=== PATIENT | female | born 1955 | race Caucasian/White ===

== ENCOUNTER 2016-06-16 12:54 | Emergency (ER) | payer OTHER ==
[~2016-06-16 12:54] MED LIST: ALBU1.25 NEB; BACT800T5 PO; METO50TA PO; OXYC1SOL5 PO
[2016-06-16 13:06] VITALS: BP 123/78; PULSE 73; RESP 18; TEMP 98.2; O2SAT 97
[2016-06-16] MEDS ORDERED: SODIUM CHLOR 0.9% 1000 ML INJ 1,000 ML IV ONE (13:10)
[2016-06-16] MEDS ORDERED: SODIUM CHLORIDE 0.9% FLUSH 10 ML FLUSH IVF PRN (13:15)
[2016-06-16] MEDS ORDERED: HYDR-3533 PO (13:22)
[2016-06-16] MEDS ORDERED: METO50TA PO (13:22)
[2016-06-16 13:54] LABS: AUTOMATED NEUTROPHIL # 7.5 TH/MM3 (1.8-7.7); BASOPHIL % 0.2 % (0.0-2.0); EOSINOPHIL # 0.2 TH/MM3 (0-0.4); EOSINOPHIL % 1.8 % (0.0-4.0); HEMATOCRIT 34.8 % (35.0-46.0); HEMO FLAGS DIFF FINAL; LYMPH % 24.6 % (9.0-44.0); LYMPHOCYTE # 2.9 TH/MM3 (1.0-4.8); MEAN CELL VOLUME 92.9 FL (80.0-100.0); MEAN CORPUSCULAR HEMOGLOBIN 31.3 PG (27.0-34.0); MEAN CORPUSCULAR HGB CONC 33.7 % (32.0-36.0); NEUT % 63.4 % (16.0-70.0); PLATELET COUNT 324 TH/MM3 (150-450); RED BLOOD COUNT 3.74 MIL/MM3 (4.00-5.30); RED CELL DISTRIBUTION WIDTH 13.6 % (11.6-17.2); WHITE BLOOD COUNT 11.8 TH/MM3 (4.0-11.0)
[2016-06-16 14:10] LABS: ALKALINE PHOSPHATASE 116 U/L (45-117); TOTAL BILIRUBIN ADULT 0.2 MG/DL (0.2-1.0)
[2016-06-16 14:13] LABS: ALT (GPT) 32 U/L (10-53); ANION GAP 5 MEQ/L (5-15); AST (GOT) 49 U/L (15-37); BLOOD UREA NITROGEN 30 MG/DL (7-18); CHLORIDE 107 MEQ/L (98-107); GLOMERULAR FILTRATION RATE 47 ML/MIN (>89); SODIUM (NA) 138 MEQ/L (136-145)
[2016-06-16 14:14] LABS: POTASSIUM 4.7 MEQ/L (3.5-5.1)
--- NOTE | 2016-06-16 15:15 | EKG ---
Date Performed: 06/16/2016 Time Performed: 13:40:11 PTAGE: 60 years EKG: SINUS BRADYCARDIA BORDERLINE ECG COMPARED TO PRIOR ELECTROCARDIOGRAM, Rate has slowed. PREVIOUS TRACING : 10/30/2014 22.22 DOCTOR: Hipolito Varela Interpretating Date/Time 06/16/2016 15:13:32
--- NOTE | 2016-06-16 16:02 | PD ---
HPI Chief Complaint: OD/ Ingestion Time Seen by Provider: 13:07 Travel History International Travel<30 days: No Contact w/Intl Traveler<30days: No Traveled to known affect area: No History of Present Illness HPI 60-year-old female presents with report of taking 4 of her Narco pills. She received 0.4 mg of Narcan with a GCS of 3 and is now GCS of 15 here. She states she was taking it for a pancreatitis attack. She denies other complaints other than upper abdominal pain. She states she has the pills that she can take for the pain. She will not tell me further details about that on initial examination. keeps stating that she took it for the pain. PFSH Past Medical History Asthma: No Blood Disorders: No Anxiety: No Depression: No Heart Rhythm Problems: No Cancer: No Cardiac Catheterization: No Cardiovascular Problems: Yes (HTN ) High Cholesterol: No Chemotherapy: No Chest Pain: No Congestive Heart Failure: No COPD: Yes Diabetes: No Diminished Hearing: No Endocrine: No Gastrointestinal Disorders: Yes (HX PANCREATITIS) Genitourinary: No Hypertension: Yes Immune Disorder: No Implanted Vascular Access Dvce: Yes Musculoskeletal: Yes Neurologic: No Psychiatric: No Reproductive: No Respiratory: Yes (COPD ) Immunizations Current: No Myocardial Infarction: No Pancreatitis: Yes Radiation Therapy: No Sleep Apnea: No Thyroid Disease: No Menopausal: Yes Past Surgical History Appendectomy: Yes Body Medical Devices: RTK, AND PLATE IN LEFT HAND Cholecystectomy: Yes Coronary Artery Bypass Graft: No Hysterectomy: Yes Social History Alcohol Use: No (QUIT) Tobacco Use: Yes (PACK AND A HALF) Substance Use: No Allergies-Medications (Allergen,Severity, Reaction): Coded Allergies: Aspirin (Verified Allergy, Severe, Anaphylaxis, 10/30/14) Morphine (Verified Allergy, Severe, 10/30/14) Penicillin (Verified Allergy, Severe, Hives, 10/30/14) Uncoded Allergies: NSAIDS (Allergy, Severe, SOB-SWELLING, 06/03/12) Reported Meds & Prescriptions Reported Meds & Active Scripts Active Reported Lortab (Hydrocodone-Acetaminophen) 5-325 Mg Tab 1 Tab PO Q4H PRN Metoprolol Tartrate 50 Mg Tab 50 Mg PO BID Review of Systems Except as stated in HPI: all other systems reviewed are Neg Physical Exam Narrative GENERAL: Well-nourished, well-developed patient. SKIN: Warm and dry. HEAD: Normocephalic and atraumatic. EYES: No injection or drainage. ENT: No nasal drainage noted. NECK: Supple, trachea midline. CARDIOVASCULAR: Regular rate and rhythm RESPIRATORY: No increased effort. No accessory muscle use. GASTROINTESTINAL: Abdomen soft, mild epigastric tenderness, nondistended. NEUROLOGICAL: Awake and alert. Motor and sensory grossly within normal limits. Normal speech. Data Data Last Documented VS Vital Signs Date Time Temp Pulse Resp B/P Pulse Ox O2 Delivery O2 Flow Rate FiO2 06/16/16 18:19 70 16 130/80 97 Room Air 06/16/16 13:06 98.2 Orders Electrocardiogram (06/16/16 13:10) Complete Blood Count With Diff (06/16/16 13:10) Comprehensive Metabolic Panel (06/16/16 13:10) Prothrombin Time / Inr (Pt) (06/16/16 13:10) Act Partial Throm Time (Ptt) (06/16/16 13:10) Blood Glucose (06/16/16 13:10) Iv Access Insert/Monitor (06/16/16 13:10) Ecg Monitoring (06/16/16 13:10) Oximetry (06/16/16 13:10) Sodium Chloride 0.9% Flush (Ns Flush) (06/16/16 13:15) Sodium Chlor 0.9% 1000 Ml Inj (Ns 1000 M (06/16/16 13:10) Drug Screen, Random Urine (06/16/16 13:10) Alcohol (Ethanol) (06/16/16 13:10) Salicylates (Aspirin) (06/16/16 13:10) Tylenol (Acetaminophen) (06/16/16 13:10) Lipase (06/16/16 13:10) Tylenol (Acetaminophen) (06/16/16 15:00) Psych Screen (06/16/16 15:58) Urinalysis - C+S If Indicated (06/16/16 17:07) Cath For Specimen (06/16/16 18:02) Acetaminophen (Tylenol) (06/16/16 18:30) Labs Laboratory Tests Test 06/16/16 06/16/16 06/16/16 13:36 15:58 18:16 White Blood Count 11.8 TH/MM3 Red Blood Count 3.74 MIL/MM3 Hemoglobin 11.7 GM/DL Hematocrit 34.8 % Mean Corpuscular Volume 92.9 FL Mean Corpuscular Hemoglobin 31.3 PG Mean Corpuscular Hemoglobin 33.7 % Concent Red Cell Distribution Width 13.6 % Platelet Count 324 TH/MM3 Mean Platelet Volume 7.6 FL Neutrophils (%) (Auto) 63.4 % Lymphocytes (%) (Auto) 24.6 % Monocytes (%) (Auto) 10.0 % Eosinophils (%) (Auto) 1.8 % Basophils (%) (Auto) 0.2 % Neutrophils # (Auto) 7.5 TH/MM3 Lymphocytes # (Auto) 2.9 TH/MM3 Monocytes # (Auto) 1.2 TH/MM3 Eosinophils # (Auto) 0.2 TH/MM3 Basophils # (Auto) 0.0 TH/MM3 CBC Comment DIFF FINAL Differential Comment Sodium Level 138 MEQ/L Potassium Level 4.7 MEQ/L Chloride Level 107 MEQ/L Carbon Dioxide Level 26.0 MEQ/L Anion Gap 5 MEQ/L Blood Urea Nitrogen 30 MG/DL Creatinine 1.18 MG/DL Estimat Glomerular Filtration 47 ML/MIN Rate Random Glucose 102 MG/DL Calcium Level 8.8 MG/DL Total Bilirubin 0.2 MG/DL Aspartate Amino Transf 49 U/L (AST/SGOT) Alanine Aminotransferase 32 U/L (ALT/SGPT) Alkaline Phosphatase 116 U/L Total Protein 6.7 GM/DL Albumin 3.5 GM/DL Lipase 54 U/L Salicylates Level 4.0 MG/DL Acetaminophen Level 4.0 MCG/ML 3.4 MCG/ML Ethyl Alcohol Level LESS THAN 3 MG/DL Prothrombin Time 10.8 SEC Prothromb Time International 1.0 RATIO Ratio Activated Partial 27.4 SEC Thromboplast Time Urine Color LIGHT-YELLOW Urine Turbidity CLEAR Urine pH 5.0 Urine Specific [place] 1.010 Urine Protein NEG mg/dL Urine Glucose (UA) NEG mg/dL Urine Ketones NEG mg/dL Urine Occult Blood NEG Urine Nitrite NEG Urine Bilirubin NEG Urine Urobilinogen LESS THAN 2.0 MG/DL Urine Leukocyte Esterase NEG Microscopic Urinalysis Comment CULT NOT INDICATED Urine Opiates Screen POS Urine Barbiturates Screen NEG Urine Amphetamines Screen NEG Urine Benzodiazepines Screen NEG Urine Cocaine Screen NEG Urine Cannabinoids Screen NEG MDM Medical Decision Making Medical Screen Exam Complete: Yes Emergency Medical Condition: Yes Medical Record Reviewed: Yes (past history confirmed) Interpretation(s) CBC & BMP Diagram 5/11/17 13:36 ua no uti Differential Diagnosis Overdose, coingestion, pancreatitis Narrative Course Will check blood work and reevaluate Labs are within normal limits, will repeat Tylenol level and if still normal she will be cleared, Mental health screening discussed with the patient. Psychiatric screen ordered. repeat tylenol is normal, medically cleared Diagnosis Primary Impression: Drug overdose Qualified Code: T50.904A - Drug overdose, undetermined intent, initial encounter Barb Mcwilliams MD June 16, 2016 16:02
[2016-06-16 16:31] LABS: APTT (PATIENT) 27.4 SEC (24.3-30.1); PROTHROMBIN TIME - PATIENT 10.8 SEC (9.8-11.6)
[2016-06-16 18:19] VITALS: BP 130/80; PULSE 70; RESP 16; O2SAT 97
[2016-06-16] MEDS ORDERED: ACETAMINOPHEN 325 MG TAB PO ONE (18:30)
[2016-06-16 18:38] LABS: BLOOD, URINE NEG (NEG); COMMENT (UR) CULT NOT INDICATED; CULTURE IF INDICATED CULT NOT INDICATED; GLUCOSE,URINE NEG (NEG); KETONE, URINE NEG (NEG); NITRITE,URINE NEG (NEG); URINE COLOR LIGHT-YELLOW (YELLW/STRAW)
[2016-06-16 18:39] LABS: AMPHETAMINE, URINE NEG (NEG); BARBITURATES, URINE NEG (NEG); COCAINE, URINE NEG (NEG)
[2016-06-16 19:27] VITALS: O2SAT 91
[2016-06-16 19:40] VITALS: O2SAT 98
[2016-06-16 21:56] VITALS: BP 117/56; PULSE 56; RESP 14; O2SAT 97
[2016-06-17 01:59] VITALS: BP 121/69; PULSE 62; RESP 16; O2SAT 96
[2016-06-17 05:00] VITALS: BP 112/62; PULSE 66; RESP 16; O2SAT 97
[2016-06-17 07:30] VITALS: RESP 17; O2SAT 99
[2016-06-17 07:41] VITALS: BP 137/57; PULSE 82; RESP 16; TEMP 97.8; O2SAT 99
== END 2016-06-17 08:10 | disposition left against medical advice (07) ==
LOC: NEPE 12:54 → NEPD 06-17 08:10
DX: T40.2X4A Poisoning by other opioids, undetermined, initial encounter (principal); I10 Essential (primary) hypertension; J44.9 Chronic obstructive pulmonary disease, unspecified; F17.210 Nicotine dependence, cigarettes, uncomplicated; Y92.9 Unspecified place or not applicable
CPT/HCPCS: 80053; 80307; 81001; 83690; 85025; 85610; 85730; 93005; 96360; 96361; 99284; J7030; P9612

== ENCOUNTER 2016-12-06 17:17 | Emergency (ER) | payer OTHER ==
[~2016-12-06] VITALS: Ht 172.7 cm; Wt 50.0 kg
[~2016-12-06 17:17] MED LIST changes: -ALBU1.25 NEB; -BACT800T5 PO; +HYDR-3533 PO; -OXYC1SOL5 PO
[2016-12-06 17:27] VITALS: BP 117/62; PULSE 52; RESP 18; TEMP 97.6; O2SAT 97
[2016-12-06] MEDS ORDERED: SODIUM CHLOR 0.9% 1000 ML INJ 1,000 ML IV SCH (17:47)
--- NOTE | 2016-12-06 17:47 | PD ---
HPI Chief Complaint: Altered Mental Status Time Seen by Provider: 17:42 Travel History International Travel<30 days: No Contact w/Intl Traveler<30days: No Traveled to known affect area: No History of Present Illness HPI 7-year-old female brought in with history of altered mental status since 9 AM this morning. Patient was brought in by EMS. Patient was last noted to be normal at 9 AM this morning. Patient states she has a terrible headache which started process the 5 days ago. Patient states she has not been taking her normal Lortab, as she did not want to be on it. She's been taking an herbal supplement to aid with withdrawal from narcotics. Patient denies fever, chills, or other symptoms. Her headache is 9 out of 10. She has no obvious weakness or complaints of numbness or tingling. Patient will answer questions appropriately although somewhat lethargic. Not given medications in the ambulance. No IV was started. Patient is allergic to NSAIDs, aspirin, morphine, and penicillin. PFSH Past Medical History Asthma: No Blood Disorders: No Anxiety: No Depression: No Heart Rhythm Problems: No Cancer: No Cardiac Catheterization: No Cardiovascular Problems: Yes High Cholesterol: No Chemotherapy: No Chest Pain: No Congestive Heart Failure: No COPD: Yes Diabetes: No Diminished Hearing: No Endocrine: No Gastrointestinal Disorders: Yes (HX PANCREATITIS) Genitourinary: No Hypertension: Yes Immune Disorder: No Implanted Vascular Access Dvce: Yes Musculoskeletal: Yes Neurologic: No Psychiatric: No Reproductive: No Respiratory: Yes (COPD ) Immunizations Current: No Myocardial Infarction: No Pancreatitis: Yes Radiation Therapy: No Sleep Apnea: No Thyroid Disease: No Menopausal: Yes Past Surgical History Appendectomy: Yes Body Medical Devices: RTK, AND PLATE IN LEFT HAND Cholecystectomy: Yes Coronary Artery Bypass Graft: No Hysterectomy: Yes Social History Alcohol Use: No (QUIT) Tobacco Use: Yes (PACK AND A HALF) Substance Use: No Allergies-Medications (Allergen,Severity, Reaction): Coded Allergies: aspirin (Unverified Allergy, Severe, Anaphylaxis, 12/06/16) morphine (Unverified Allergy, Severe, 12/06/16) penicillin G (Unverified Allergy, Severe, Hives, 12/06/16) Uncoded Allergies: NSAIDS (Allergy, Severe, SOB-SWELLING, 06/03/12) Reported Meds & Prescriptions Reported Meds & Active Scripts Active Reported Lortab (Hydrocodone-Acetaminophen) 10-325 Mg Tab 1 Tab PO TID Clonazepam 0.5 Mg Tab 0.5 Mg PO DAILY Amlodipine (Amlodipine Besylate) 5 Mg Tab 5 Mg PO DAILY Proair Hfa 8.5 GM Inh (Albuterol Sulfate) 90 Mcg/Act Aer 1 Puff INH Q4-6H PRN Prozac (Fluoxetine HCl) 40 Mg Cap 40 Mg PO DAILY Metoprolol Tartrate 50 Mg Tab 50 Mg PO BID Review of Systems Except as stated in HPI: all other systems reviewed are Neg General / Constitutional: No: Fever Eyes: No: Diploplia, Blurred Vision, Photophobia, Drainage, Redness, Foreign Body Sensation, Pain, Tearing, Blind Spots, Visual changes, Blindness HENT: Positive: Headaches, No: Vertigo, Lightheadedness, Sore Throat, Rhinitis , Rhinorrhea, Congestion, Nosebleed, Neck Stiffness, Neck Pain, Dental Difficulties, Ear Discharge Cardiovascular: No: Chest Pain or Discomfort Respiratory: No: Cough, Shortness of Breath, Wheezing Gastrointestinal: No: Nausea, Vomiting, Diarrhea, Abdominal Pain Genitourinary: No: Dysuria Musculoskeletal: No: Pain Skin: No Rash Neurologic: Positive: Weakness, Headache, Change in Mentation, No: Dizziness, Syncope, Focal Abnormalities, Coordination Problem, Tremor, Ataxia, Slurred Speech, Paresthesia, Incontinence, Seizures, Sensory Disturbance Psychiatric: No: Depression Endocrine: No: Polydipsia Hematologic/Lymphatic: No: Easy Bruising Physical Exam Narrative GENERAL: Patient appears somewhat obtunded, but will answer questions and obey commands. SKIN: Warm and dry. Normal color. Normal turgor. Patient has a couple of old ecchymosis areas, but no acute signs of trauma. HEAD: Atraumatic. Normocephalic. Nontender with palpation. EYES: Pupils equal and round. No scleral icterus. No injection or drainage. ENT: No nasal bleeding or discharge. Mucous membranes pink and moist. Pharynx is clear. Airway is patent. NECK: Trachea midline. Supple and nontender. No bony tenderness or step-off. CARDIOVASCULAR: Regular rate and rhythm. RESPIRATORY: No accessory muscle use. Clear to auscultation. Breath sounds equal bilaterally. GASTROINTESTINAL: Abdomen soft, non-tender, nondistended. Hepatic and splenic margins not palpable. MUSCULOSKELETAL: Extremities without clubbing, cyanosis, or edema. No obvious deformities. NEUROLOGICAL: Awake and alert. No obvious cranial nerve deficits. Motor grossly within normal limits. Five out of 5 muscle strength in the arms and legs. Patient is able to wiggle her toes and fingers, as well as touch her nose with both fingers. Normal speech. PSYCHIATRIC: Lethargic, but Appropriate mood and affect; insight and judgment normal. Data Data Last Documented VS Vital Signs Date Time Temp Pulse Resp B/P (MAP) Pulse Ox O2 Delivery O2 Flow Rate FiO2 12/06/16 18:15 Room Air 12/06/16 17:32 46 20 97 12/06/16 17:27 97.6 117/62 (80) Orders Orders Electrocardiogram (12/06/16 17:47) Ammonia (12/06/16 17:47) Complete Blood Count With Diff (12/06/16 17:47) Comprehensive Metabolic Panel (12/06/16 17:47) Creatine Kinase (Cpk) (12/06/16 17:47) Prothrombin Time / Inr (Pt) (12/06/16 17:47) Act Partial Throm Time (Ptt) (12/06/16 17:47) Troponin I (12/06/16 17:47) Urinalysis - C+S If Indicated (12/06/16 17:47) Ct Brain W/O Iv Contrast(Rout) (12/06/16 17:47) Blood Glucose (12/06/16 17:47) Ecg Monitoring (12/06/16 17:47) Iv Access Insert/Monitor (12/06/16 17:47) Cath For Specimen (12/06/16 17:47) Oximetry (12/06/16 17:47) Naloxone Inj (Narcan Inj) (12/06/16 18:00) Sodium Chloride 0.9% Flush (Ns Flush) (12/06/16 18:00) Sodium Chlor 0.9% 1000 Ml Inj (Ns 1000 M (12/06/16 17:47) Drug Screen, Random Urine (12/06/16 17:47) Vascular Access Team Consult/P PRN (12/06/16 18:02) Vascular Poc Ultrasound (12/06/16 ) Alcohol (Ethanol) (12/06/16 18:05) Labs Laboratory Tests Test 12/06/16 18:25 White Blood Count 9.4 TH/MM3 Red Blood Count 3.55 MIL/MM3 Hemoglobin 11.7 GM/DL Hematocrit 34.2 % Mean Corpuscular Volume 96.5 FL Mean Corpuscular Hemoglobin 32.9 PG Mean Corpuscular Hemoglobin Concent 34.1 % Red Cell Distribution Width 13.3 % Platelet Count 292 TH/MM3 Mean Platelet Volume 7.6 FL Neutrophils (%) (Auto) 44.0 % Lymphocytes (%) (Auto) 43.0 % Monocytes (%) (Auto) 10.7 % Eosinophils (%) (Auto) 1.8 % Basophils (%) (Auto) 0.5 % Neutrophils # (Auto) 4.2 TH/MM3 Lymphocytes # (Auto) 4.1 TH/MM3 Monocytes # (Auto) 1.0 TH/MM3 Eosinophils # (Auto) 0.2 TH/MM3 Basophils # (Auto) 0.0 TH/MM3 CBC Comment DIFF FINAL Differential Comment MDM Medical Decision Making Medical Screen Exam Complete: Yes Emergency Medical Condition: Yes Medical Record Reviewed: Yes Differential Diagnosis Altered mental status. Intracranial bleed. Medication overdose. Sepsis. Narrative Course Patient appears medically stable at time of exam. CT the head is ordered. Labs ordered including CBC, CMP, coagulation studies, ammonia level, urine tox screen, urinalysis, and serum alcohol level. IV access is obtained. Patient is given 2 mg of naloxone IV. Patient is given 1000 mL was normal saline bolus. CT of the head was negative. Patient improved and became more lucid and awake after given IV Naloxone. Patient is requesting to leave. Patient denies taking any narcotics or any other medications at this time. Patient denies suicidality has no signs of respiratory depression or compromise. Patient was discussed with Dr. Desir who agrees that the patient does not qualify for [place] act or Garcia act. AMA paperwork was prepared and signed by the patient. Diagnosis Primary Impression: Left against medical advice Disposition: AGAINST MEDICAL ADVICE Condition: Stable Zeferino Crews Dec 06, 2016 17:47
[2016-12-06] MEDS ORDERED: SODIUM CHLORIDE 0.9% FLUSH 5 ML FLUSH IV FLUSH PRN (18:00)
[2016-12-06] MEDS ORDERED: NALOXONE HCL 2 MG/2 ML VIAL IV PUSH ONE (18:00)
[2016-12-06] MEDS ORDERED: HYDR-3535 PO (18:04)
[2016-12-06] MEDS ORDERED: PROZ40CA PO (18:04)
[2016-12-06] MEDS ORDERED: ALBUAER3 INH (18:04)
[2016-12-06] MEDS ORDERED: CLON0.5T PO (18:04)
[2016-12-06] MEDS ORDERED: AMLO5TAB2 PO (18:04)
--- NOTE | 2016-12-06 18:23 | RADRPT ---
EXAM DATE/TIME: 12/06/2016 18:03 [facility] COMPARISON: CT BRAIN W/O CONTRAST, October 30, 2014, 22:42. INDICATIONS : Confusion RADIATION DOSE: 56.35 CTDIvol (mGy) MEDICAL HISTORY : Hypertension. Chronic obstructive pulmonary disease. Pancreatitis. SURGICAL HISTORY : Appendectomy. Cholecystectomy.Hysterectomy. ENCOUNTER: Initial ACUITY: 1 day PAIN SCALE: 0/10 LOCATION: cranial TECHNIQUE: Multiple contiguous axial images were obtained of the head. Using automated exposure control and adj ustment of the mA and/or kV according to patient size, radiation dose was kept as low as reasonably a chievable to obtain optimal diagnostic quality images. DICOM format image data is available electro nically for review and comparison. FINDINGS: The patient is tilted in the scanning gantry CEREBRUM: The ventricles are normal for age. No evidence of midline shift, mass lesion, hemorrhage or acute in farction. No extra-axial fluid collections are seen. POSTERIOR FOSSA: The cerebellum and brainstem are intact. The 4th ventricle is midline. The cerebellopontine angle i s unremarkable. EXTRACRANIAL: The visualized portion of the orbits is intact. SKULL: The calvaria is intact. No evidence of skull fracture. CONCLUSION: Negative noncontrast CT Roland Smith MD on December 06, 2016 at 18:20 Board Certified Radiologist. This report was verified electronically.
[2016-12-06 18:43] LABS: AUTOMATED NEUTROPHIL # 4.2 TH/MM3 (1.8-7.7); BASOPHIL % 0.5 % (0.0-2.0); EOSINOPHIL # 0.2 TH/MM3 (0-0.4); EOSINOPHIL % 1.8 % (0.0-4.0); HEMATOCRIT 34.2 % (35.0-46.0); HEMO FLAGS DIFF FINAL; LYMPHOCYTE # 4.1 TH/MM3 (1.0-4.8); MEAN CELL VOLUME 96.5 FL (80.0-100.0); MEAN CORPUSCULAR HEMOGLOBIN 32.9 PG (27.0-34.0); MEAN CORPUSCULAR HGB CONC 34.1 % (32.0-36.0); MONO % 10.7 % (0.0-8.0); PLATELET COUNT 292 TH/MM3 (150-450); RED BLOOD COUNT 3.55 MIL/MM3 (4.00-5.30); RED CELL DISTRIBUTION WIDTH 13.3 % (11.6-17.2); WHITE BLOOD COUNT 9.4 TH/MM3 (4.0-11.0)
--- NOTE | 2016-12-06 18:47 | PD ---
Data Data Last Documented VS Vital Signs Date Time Temp Pulse Resp B/P (MAP) Pulse Ox O2 Delivery O2 Flow Rate FiO2 12/06/16 18:15 Room Air 12/06/16 17:32 46 20 97 12/06/16 17:27 97.6 117/62 (80) Orders Orders Electrocardiogram (12/06/16 17:47) Ammonia (12/06/16 17:47) Complete Blood Count With Diff (12/06/16 17:47) Comprehensive Metabolic Panel (12/06/16 17:47) Creatine Kinase (Cpk) (12/06/16 17:47) Prothrombin Time / Inr (Pt) (12/06/16 17:47) Act Partial Throm Time (Ptt) (12/06/16 17:47) Troponin I (12/06/16 17:47) Urinalysis - C+S If Indicated (12/06/16 17:47) Ct Brain W/O Iv Contrast(Rout) (12/06/16 17:47) Blood Glucose (12/06/16 17:47) Ecg Monitoring (12/06/16 17:47) Iv Access Insert/Monitor (12/06/16 17:47) Cath For Specimen (12/06/16 17:47) Oximetry (12/06/16 17:47) Naloxone Inj (Narcan Inj) (12/06/16 18:00) Sodium Chloride 0.9% Flush (Ns Flush) (12/06/16 18:00) Sodium Chlor 0.9% 1000 Ml Inj (Ns 1000 M (12/06/16 17:47) Drug Screen, Random Urine (12/06/16 17:47) Vascular Access Team Consult/P PRN (12/06/16 18:02) Vascular Poc Ultrasound (12/06/16 ) Alcohol (Ethanol) (12/06/16 18:05) Labs Laboratory Tests Test 12/06/16 18:25 White Blood Count 9.4 TH/MM3 Red Blood Count 3.55 MIL/MM3 Hemoglobin 11.7 GM/DL Hematocrit 34.2 % Mean Corpuscular Volume 96.5 FL Mean Corpuscular Hemoglobin 32.9 PG Mean Corpuscular Hemoglobin Concent 34.1 % Red Cell Distribution Width 13.3 % Platelet Count 292 TH/MM3 Mean Platelet Volume 7.6 FL Neutrophils (%) (Auto) 44.0 % Lymphocytes (%) (Auto) 43.0 % Monocytes (%) (Auto) 10.7 % Eosinophils (%) (Auto) 1.8 % Basophils (%) (Auto) 0.5 % Neutrophils # (Auto) 4.2 TH/MM3 Lymphocytes # (Auto) 4.1 TH/MM3 Monocytes # (Auto) 1.0 TH/MM3 Eosinophils # (Auto) 0.2 TH/MM3 Basophils # (Auto) 0.0 TH/MM3 CBC Comment DIFF FINAL Differential Comment MDM Supervised Visit with TOMÁS: Yes Narrative Course The history, exam, and medical decision-making in the associated mid-level provider note were completed with my assistance. I reviewed and agree with the findings presented. I attest that I had a [id number] encounter with the patient on the same day, and personally performed and documented my assessment and findings in the medical record. *My assessment and Findings: 61 year-old woman, coming in by EMS with her after she was found sluggishly responsive. She has prescriptions for pain medicines. She was given small dose of naloxone. She woke up denied taking anything but insisted on leaving. She had no respiratory depression or evidence of life-threatening overdose. Denies any suicidality. She'll be allowed to leave AMA with her . Disposition: 07 AGAINST MEDICAL ADVICE Condition: Bret Escobar MD Dec 06, 2016 18:47
[2016-12-06 19:03] LABS: APTT (PATIENT) 27.7 SEC (24.3-30.1); PROTHROMBIN TIME - PATIENT 11.1 SEC (9.8-11.6)
[2016-12-06 19:05] LABS: ALT (GPT) 29 U/L (10-53); ANION GAP 4 MEQ/L (5-15); AST (GOT) 30 U/L (15-37); BICARBONATE 22.2 MEQ/L (21.0-32.0); BLOOD UREA NITROGEN 28 MG/DL (7-18); CHLORIDE 113 MEQ/L (98-107); GLOMERULAR FILTRATION RATE 49 ML/MIN (>89); SODIUM (NA) 139 MEQ/L (136-145)
[2016-12-06 19:09] LABS: ALKALINE PHOSPHATASE 113 U/L (45-117); TOTAL BILIRUBIN ADULT 0.3 MG/DL (0.2-1.0)
[2016-12-06 19:21] LABS: CREATINE KINASE 93 U/L (26-192)
--- NOTE | 2016-12-07 15:46 | EKG ---
Date Performed: 12/06/2016 Time Performed: 17:34:43 PTAGE: 61 years EKG: SINUS BRADYCARDIA POSSIBLE LEFT ATRIAL ENLARGEMENT BORDERLINE ECG Compared to prior tracing no significant change DOCTOR: Rebeca Garcia Interpretating Date/Time 12/07/2016 15:44:24
== END 2016-12-06 19:04 | disposition left against medical advice (07) ==
LOC: NEPC 17:17
DX: R41.82 Altered mental status, unspecified (principal); R51 Headache; I10 Essential (primary) hypertension; J44.9 Chronic obstructive pulmonary disease, unspecified; F17.200 Nicotine dependence, unspecified, uncomplicated; R00.1 Bradycardia, unspecified; Z79.899 Other long term (current) drug therapy
CPT/HCPCS: 70450; 80053; 80307; 82140; 82550; 84484; 85025; 85610; 85730; 93005; 96374; 99285; J2310; J7030